=== PATIENT | female | born 1995 | race Caucasian/White ===

== ENCOUNTER 2017-02-24 15:00 | Inpatient (IN) | payer OTHER ==
--- NOTE | ~2017-02-24 | CO ---
Unit #: [id number] #: [id number] Patient: YANDEL MARTINEZ [id number] [place] [address] [id number] I MR#: [id number] NAME: YANDEL MARTINEZ. ROOM: P122 Age: 21 Sex: F Admission Date: 02/24/2017 : 1995 Attending Physician: Miguelina Daniel M.D. Primary Care Physician: Primary Care Physician No Consultation Date: 02/25/2017 CONSULTATION REPORT VICTORIA Myrick is a 21-year-old with type 2 diabetes. We have been asked to review her blood sugars and diabetes medications. At time of admission, she tells us that she had been on Lantus 100 units b.i.d. This was not continued. We followed her blood sugars for 48 hours and cover her with a sliding scale. Blood sugars were never greater than 200. This despite no medication except for sliding scale. At this time, we will continue sliding scale and add Glucophage 500 mg one p.o. b.i.d. She needs to follow up with her primary care physician. Again, I am not continuing her reported home medications of Lantus 100 units b.i.d. Dictated by... Cinthia Sage P.A.-C. for Lakia Gilbert/soraya TD: 02/27/2017 16:43 JOB #: [id number] CONSULTATION REPORT Page 1 of 1 X Cinthia Sage CONSULTATION REPORT
--- NOTE | ~2017-02-24 | PN ---
Unit #: [id number] #: [id number] Patient: YANDEL CHAN [id number] [facility] [address] [place] [address] [id number] I MR#: [id number] NAME: YANDEL CHAN. ROOM: P122 Age: 21 Sex: F Admission Date: 02/24/2017 : 1995 Attending Physician: Miguelina Daniel M.D. Admitting Physician: Miguelina Daniel M.D. Primary Care Physician: Primary Care Physician Cynthia TOMAS PROGRESS NOTES DATE OF SERVICE: 02/28/2017 SUBJECTIVE Ms. Chan is a 21-year-old white female who was seen today and chart was reviewed and case was discussed with the staff. She reports doing somewhat better . Meanwhile, she has been taking the medications and tolerating them fairly well with no reported side effects. MENTAL STATUS EXAMINATION Young white female who was casually dressed with fair personal hygiene, appears to be in no acute distress or discomfort. She was awake and alert with intact orientation. Her mood was anxious with a congruent affect. She denies any suicidal or homicidal ideations. Her insight and judgment remain slightly impaired. TREATMENT PLAN 1. We will continue her on her current treatment protocol. We will monitor her response and make further adjustments as needed. 2. We will continue to follow up. Dictated by... Lakia Up/soraya TD: 03/02/2017 00:57 JOB #: [id number] [facility] PROGRESS NOTES Page 1 of 1 X Miguelina Daniel MD PROGRESS NOTE
--- NOTE | ~2017-02-24 | PN ---
Unit #: [id number] #: [id number] Patient: YANDEL CHAN [id number] [facility] [address] [place] [address] [id number] I MR#: [id number] NAME: YANDEL CHAN. ROOM: P122 Age: 21 Sex: F Admission Date: 02/24/2017 : 1995 Attending Physician: Miguelina Daniel M.D. Admitting Physician: Miguelina Daniel M.D. Primary Care Physician: Primary Care Physician Cynthia TOMAS PROGRESS NOTES DATE March 01, 2017 DISCUSSION Ms. Chan is a 21-year-old white female, with mood disorder, who was seen today and chart was reviewed and the case was discussed with the staff. She reports having a good family visitation last evening, meanwhile, she has been compliant with the treatment recommendations and she has been taking the medications and tolerating them fairly well with no reported side effects. MENTAL STATUS EXAMINATION Young white female, who was casually dressed with fair personal hygiene and appears to be in no acute distress or discomfort. The patient was awake and alert on interaction with intact orientation. Her mood is anxious with a congruent affect. The patient denies any suicidal or homicidal ideations. Her insight and judgment remain slightly impaired. TREATMENT PLAN We will continue her on her current treatment protocol, and will monitor her response, and make further adjustments as needed. Dictated by... Lakia Up/herve TD: 03/02/2017 09:04 JOB #: [id number] Unit #: [id number] #: [id number] Patient: YANDEL CHAN THOM PROGRESS NOTES Page 1 of 1 X Miguelina Daniel MD PROGRESS NOTE
--- NOTE | ~2017-02-24 | DS ---
Unit #: [id number] #: [id number] Patient: YANDEL CHAN [id number] [facility] [address] [place] [address] [id number] I MR#: [id number] NAME: YANDEL CHAN. ROOM: P122 Age: 21 Sex: F Admission Date: 02/24/2017 : 1995 Discharge Date: 03/03/2017 Attending Physician: Miguelina Daniel M.D. Primary Care Physician: Primary Care Physician No DISCHARGE SUMMARY IDENTIFYING DATA Ms. Chan is a 21-year-old single white female who was brought to the hospital by her family. DISCHARGE DIAGNOSES Psychiatric: Bipolar disorder, most recent episode depressed, recurrent, moderate, without psychotic features. Medical: Diabetes mellitus, polycystic ovarian disease. Stressors: Moderate psychosocial stressors. HISTORY OF PRESENT ILLNESS Please see initial psychiatric evaluation for details. PAST PSYCHIATRIC HISTORY Please see initial psychiatric evaluation for details. PAST MEDICAL HISTORY Please see initial psychiatric evaluation for details. HOSPITAL COURSE The [facility] and was oriented to the hospital environment. Routine p.r.n. medications were initiated, and she was started back on her home medications and medications were adjusted and Geodon and Depakote were initiated and she was closely monitored. She was initially seen to be anxious, restless, irritable, impulsive, but was able to settle down and was seen to be showing therapeutic response to the medications with improvement in depression, anxiety, agitation, and aggression, and family session was also conducted and family felt comfortable her coming home and the patient was denying any thoughts of wanting to hurt herself or hurt her family members, particularly her little brother who has been removed from the house and as such, was not seen to be a danger to self or anyone else and it was decided that she will be discharged home and will continue treatment on an outpatient basis. DISCHARGE MEDICATIONS Depakote 500 mg b.i.d. for depression and Geodon 40 mg b.i.d. for bipolar. DISCHARGE CONDITION Stable. PROGNOSIS Fair. Unit #: [id number] #: [id number] Patient: YANDEL CHAN Dictated by... Miguelina Daniel M.D. IAA/modl TD: 03/03/2017 07:40 JOB #: [id number] DISCHARGE SUMMARY Page 1 of 1 X Miguelina Daniel MD DISCHARGE SUMMARY
--- NOTE | ~2017-02-24 | PN ---
Unit #: [id number] #: [id number] Patient: YANDEL CHAN [id number] [facility] [address] [place] [address] [id number] MR#: [id number] NAME: YANDEL CHAN. ROOM: P122 Age: 21 Sex: F Admission Date: 02/24/2017 : 1995 Attending Physician: Miguelina Daniel M.D. Admitting Physician: Miguelina Daniel M.D. Primary Care Physician: Primary Care Physician Cynthia COMER NOTES DATE 02/26/2017 DISCUSSION Ms. Chan is a 21-year-old white female who was seen today and chart was reviewed and case was discussed with the staff. She has been anxious, withdrawn though has not shown any agitation, irritability or behavioral problems and has been cooperative with treatment recommendations and has been taking medications and tolerating them fairly well with no reported side effects. MENTAL STATUS EXAMINATION Young white female who was casually dressed with fair personal hygiene and appears to be in no acute distress or discomfort. She was awake and alert with intact orientation. Her mood was anxious and depressed with congruent affect. Speech is slow and restricted in content. Her insight and judgement remains significantly impaired. TREATMENT PLAN Patient continues to express very poor insight into her situation and refusing to take responsibility for her attitude and actions and behavior and threats of wanting to hurt her child and her 11-year-old brother and as such remains a poor prognosis. Meanwhile, will maintain her current level of precautions and her medications. Will monitor response and make further adjustments as needed. Dictated by... Lakia Up/evan TD: 02/26/2017 21:23 JOB #: [id number] Unit #: [id number] #: [id number] Patient: YANDEL CHAN THOM COMER NOTES Page 1 of 1 X Miguelina Daniel MD PROGRESS NOTE
--- NOTE | ~2017-02-24 | HP ---
Unit #: [id number] #: [id number] Patient: AYNDEL MARTINEZ [id number] [place] [address] [id number] I MR#: [id number] NAME: YANDEL MARTINEZ. ROOM: P122 Age: 21 Sex: F Admission Date: 02/24/2017 : 1995 Attending Physician: Miguelina Daniel M.D. Admitting Physician: Miguelina Daniel M.D. Primary Care Physician: Primary Care Physician No HISTORY AND PHYSICAL ADDENDUM At time of admission, patient reported to me that she has type 1 diabetes. After reviewing her blood sugars and her dosage of insulin, it appears that she is type 2 insulin-dependent. She had been without any long-acting insulin and blood sugars remained under 200. We were able to keep her blood sugars controlled with only carb count and sliding scale. Will continue to monitor blood sugars with Accu-Cheks a.c. and h.s. Dictated by... Cinthia Sage P.A.-C. for Lakia Gilbert/evan TD: 02/27/2017 20:28 JOB #: [id number] HISTORY AND PHYSICAL Page 1 of 1 X Cinthia Sage HISTORY AND PHYSICAL
--- NOTE | ~2017-02-24 | PN ---
Unit #: [id number] #: [id number] Patient: YANDEL CHAN [id number] [facility] [address] [place] [address] [id number] I MR#: [id number] NAME: YANDEL CHAN. ROOM: P122 Age: 21 Sex: F Admission Date: 02/24/2017 : 1995 Attending Physician: Miguelina Daniel M.D. Admitting Physician: Miguelina Daniel M.D. Primary Care Physician: Primary Care Physician Cynthia COMER NOTES DATE 02/27/2017 DISCUSSION Ms. Chan is a 21-year-old single white female with mood disorder who was seen today and chart was reviewed and case was discussed with the staff. She reports doing much better and that she still has been having regular thoughts about wanting to hurt herself, her child and her brother but that her child has been moved to her ex who is the father of the baby and her 11-year-old brother has been moved to different house. Meanwhile, she feels that she is doing better and feels more stable on the medications, particularly Geodon. MENTAL STATUS EXAMINATION Young white female who was casually dressed with fair personal hygiene and appears to be in no acute distress or discomfort. She was awake and alert on interaction with intact orientation. Her mood was anxious with congruent affect. She reports having some homicidal ideation but denies any intent or plan and also denies any suicidal ideations. Her insight and judgement remains significantly impaired. TREATMENT PLAN 1. Will continue on current medications including the Geodon. Will monitor her response to the medications and make further adjustments as needed. 2. Will continue to follow up. Dictated by... Lakia Up/evan TD: 02/27/2017 21:32 JOB #: [id number] Unit #: [id number] #: [id number] Patient: YANDEL CHAN THOM PROGRESS NOTES Page 1 of 1 X Miguelina Daniel MD X PROGRESS NOTE
--- NOTE | ~2017-02-24 | CO ---
Unit #: [id number] #: [id number] Patient: AYNDEL MARTINEZ [id number] [place] [address] [id number] I MR#: [id number] NAME: YANDEL MARTINEZ. ROOM: P122 Age: 21 Sex: F Admission Date: 02/24/2017 : 1995 Attending Physician: Miguelina Daniel M.D. Primary Care Physician: Primary Care Physician No Consultation Date: 03/01/2017 CONSULTATION REPORT ORDERING PROVIDER Dr. Daniel. REASON FOR CONSULT Upper respiratory infection. SUBJECTIVE The patient reports that for the past day, she has had painful, swollen area on her right neck and right ear pain. She reports that she has a headache and was dizzy. Her sinuses are tender. OBJECTIVE She is afebrile. The right side of her face does appear swollen and she has a lymph node present in right anterior cervical. Right side of her sinuses were tender to palpation. Lungs are clear to auscultation. No pharyngeal edema or erythema. ASSESSMENT Sinus infection. PLAN Plan is to start her on amoxicillin and get a strep test and start Flonase. Dictated by... Freya Eli/soraya TD: 03/02/2017 03:18 JOB #: [id number] CONSULTATION REPORT Page 1 of 1 X NICK BALDERAS APRN CONSULTATION REPORT
--- NOTE | ~2017-02-24 | PN ---
Unit #: [id number] #: [id number] Patient: YANDEL CHAN [id number] [facility] [address] [place] [address] [id number] I MR#: [id number] NAME: YANDEL CHAN. ROOM: P122 Age: 21 Sex: F Admission Date: 02/24/2017 : 1995 Attending Physician: Miguelina Daniel M.D. Admitting Physician: Miguelina Daniel M.D. Primary Care Physician: Primary Care Physician Cynthia TOMAS PROGRESS NOTES DATE OF SERVICE: 03/02/2017 SUBJECTIVE Ms. Chan is a 21-year-old white female who was seen today and chart was reviewed and case was discussed with the staff. She has been anxious, withdrawn, and rather seclusive to herself. Meanwhile, she has been cooperative with treatment recommendations and has been taking the medications and tolerating them fairly well with no reported side effects. MENTAL STATUS EXAMINATION Young white female who was casually dressed with fair personal hygiene, appears to be in no acute distress or discomfort. She was awake and alert on interaction with intact orientation. Her mood was anxious with a congruent affect. She denies any suicidal or homicidal ideations. Her insight and judgment remain slightly impaired. TREATMENT PLAN 1. We will continue her on her current medications and treatment protocol. We will monitor her response and make further adjustments as needed. 2. We will continue to follow up. Dictated by... Lakia Up/soraya TD: 03/04/2017 00:37 JOB #: [id number] [facility] PROGRESS NOTES Page 1 of 1 X Miguelina Daniel MD PROGRESS NOTE
--- NOTE | ~2017-02-24 | HP ---
Unit #: [id number] #: [id number] Patient: YANDEL MARTINEZ [id number] [place] [address] [id number] I MR#: [id number] NAME: YANDEL MARTINEZ. ROOM: P122 Age: 21 Sex: F Admission Date: 02/24/2017 : 1995 Attending Physician: Miguelina Daniel M.D. Admitting Physician: Miguelina Daniel M.D. Primary Care Physician: Primary Care Physician No HISTORY AND PHYSICAL REVISED REPORT (See Addendum) HISTORY OF PRESENT ILLNESS Yandel is a 21-year-old admitted to [address] [place] [address] with depression and verbalizing wanting to hurt herself. PAST MEDICAL HISTORY 1. Juvenile diabetes. 2. Gastroparesis. 3. PCOS. PAST SURGICAL HISTORY 1. D and C. 2. . ALLERGIES Keflex, penicillin, Trileptal. SOCIAL HISTORY She denies cigarettes, alcohol and illicit drug use. FAMILY HISTORY Medically noncontributory. REVIEW OF SYSTEMS CONSTITUTIONAL: No fever or chills. HEENT: Denies any sore throat, ear pain or runny nose. CARDIOVASCULAR: Denies chest pain, irregular heart rhythm or palpitations. CHEST: Denies shortness of breath or cough. No hemoptysis. GASTROINTESTINAL: Denies nausea, vomiting, diarrhea or chronic constipation. ENDOCRINE: Denies history of increased thirst or urination. No recent significant weight loss or gain. GENITOURINARY: Denies dysuria, frequency, or hematuria. SKIN: Denies any rashes. HEMATOLOGIC: Denies history of increased bleeding or bruising. MUSCULOSKELETAL: Denies any hot, swollen joints. No generalized muscle pain. NEUROLOGIC: Denies problems with vision or speech. No frequent, severe headaches. No numbness, tingling or weakness in any extremities. Denies loss of bladder or bowel control. Unit #: [id number] #: [id number] Patient: YANDEL MARTINEZ CURRENT MEDICATIONS 1. Claritin 10 mg daily. 2. Depakote 500 mg b.i.d. 3. Geodon 40 mg b.i.d. 4. NovoLog sliding scale. 5. Desyrel 100 mg at nighttime p.r.n. 6. Milk of Magnesia p.r.n. 7. Maalox. PHYSICAL EXAMINATION GENERAL: Alert, well nourished, no apparent distress. VITAL SIGNS: Blood pressure 144/76, heart rate 80, respirations 16, temperature 98.6. WEIGHT: 240. HEIGHT: 5 feet 4 inches. SKIN: Warm and dry without rash or lesion. HEENT: Normocephalic. TMs not viewed. Oral and nasal passages clear. Conjunctivae clear. PERRLA. EOMs intact. NECK: Supple without lymphadenopathy or thyromegaly. HEART: Regular rate and rhythm without murmur. LUNGS: Clear. ABDOMEN: Soft, nontender. : Not done. EXTREMITIES: No evidence of cyanosis, clubbing or edema. Moves all without focal deficit. NEUROLOGICAL: Grossly within normal limits. Cranial Nerves: II: Visual orlando are intact. III, IV AND : Extraocular movements are intact. Pupils are equal, round and reactive to light. V: Facial sensation is grossly normal. VII: Facial movements and expression are normal. VIII: Auditory acuity grossly intact. IX, X: Uvula is midline. Phonation is normal. XI: Patient shrugs shoulders and turns head normally. XII: Tongue protrudes in the midline. Sensory and Motor Function: Sensory and motor sensation is grossly normal. Motor: moves all extremities well. Coordination: Gait is normal. Deep Tendon Reflexes: Intact. IMPRESSION Psychiatric admission. RECOMMENDATIONS PSYCHIATRIC: Per psychiatrist. MEDICAL: I see no contraindication to participate in this facility's activities. MEDICAL PROGNOSIS Good. MEDICAL CONDITION Stable. Dictated by... Cinthia Sage P.A.-C. Unit #: [id number] #: [id number] Patient: YANDEL MARTINEZ COLETTE/gz TD: 02/25/2017 16:15 JOB #: [id number] ADDENDUM Revisions and deletions made per instructions on . Dictated by... Cinthia Sage P.A.-C. for Lakia Gilbert/bzg TD: 02/27/2017 11:15 JOB #: [id number] HISTORY AND PHYSICAL Page 1 of 1 X Cinthia Sage HISTORY AND PHYSICAL
[~2017-02-24 15:00] MED LIST: AMOXICILLIN PO; ATARAX PO; AUGMENTIN1 TAB.SR1 PO; AZITHROMYCIN250 MG PO; FLEXERIL10 MG PO; HUMALOG100 U/M1; IBUPROFEN PO; LANTUS100 U/ML; NAPROSYN500 MG PO; NO MEDICATIONS; PROTONIX PO; REGLAN10 MG PO; ZOFRAN ODT4 MG PO
[2017-02-25 09:44] LABS: BASOPHIL# 0.1 X10e3 (0-0.3); BASOPHIL% 0.7 % (0-2.5); EOSINOPHIL# 0.2 X10e3 (0-0.7); EOSINOPHIL% 1.5 % (0.0-7.0); HEMATOCRIT 40.6 % (35.0-45.0); HEMOGLOBIN 13.4 gm/dL (12.0-16.0); LYMPHOCYTE# 4.2 X10e3 (1.0-3.5); LYMPHOCYTE% 40.3 % (17.0-45.0); MEAN CELL VOLUME 85.4 FL (83-96); MEAN CORPUSCULAR HEMOGLOBIN 28.1 PG (28-34); MEAN CORPUSCULAR HGB CONC 32.9 g/dL (30-36); MONOCYTE# 0.5 X10e3 (0-1.0); MONOCYTE% 4.9 % (3.0-12.0); NEUTROPHIL# 5.5 X10e3 (1.5-7.1); NEUTROPHIL% 52.6 % (40-75); PLATELET COUNT 279 X10e3 (140-420); RED BLOOD COUNT 4.75 X10e (3.90-5.30); RED CELL DISTRIBUTION WIDTH 12.7 % (11.0-15.5); WHITE BLOOD COUNT 10.5 X10e3 (4.0-10.5)
[2017-02-25 10:00] LABS: THYROID STIMULATING HORMONE 2.34 uIU/ml (0.34-5.60)
[2017-02-25 10:02] LABS: DIFF IND NO
[2017-02-25 10:09] LABS: FREE THYROXIN (T4) 1.06 ng/dL (0.58-1.64)
[2017-02-25 10:33] LABS: BILIRUBIN,TOTAL 1.1 mg/dL (0.2-2.0); BUN/CREATININE RATIO 11.66; CALCIUM SERUM 9.8 mg/dL (8.4-10.2); CREATININE SERUM 0.6 mg/dL (0.6-1.4); GLOM FILT RATE Estimated 132.1 mL/min (>60); POTASSIUM 4.2 mmol/L (3.5-5.1); PROTEIN TOTAL SERUM 7.2 g/dL (6.0-8.3)
== END 2017-03-03 10:15 | disposition home or self-care (01) | DRG 885 ==
LOC: P1S 17:23
PROVIDERS: Psychiatry & Neurology Psychiatry
DX: F31.32 Bipolar disorder, current episode depressed, moderate (principal); E11.9 Type 2 diabetes mellitus without complications; Z79.4 Long term (current) use of insulin; E28.2 Polycystic ovarian syndrome; J32.9 Chronic sinusitis, unspecified
CPT/HCPCS: 80053; 82947; 84439; 84443; 84703; 85025; 87651